=== PATIENT | male | born 1970 | race Caucasian/White ===

== ENCOUNTER 2016-12-16 16:59 | Emergency (ER) | payer BC ==
[2016-12-16] MEDS ORDERED: Famotidine/PF 20 mg/2ml Vial ONE (17:31)
[2016-12-16] MEDS ORDERED: Mag-Al Plus 1200 MG/1200 MG/120 MG/30 ML UDCUP ONE (17:31)
[2016-12-16 17:32] LABS: #Basophils 0.1 thou/uL (0.0-0.2); #Eosinphils 0.1 thou/uL (0.0-0.7); #Lymphocytes 1.5 thou/uL (1.20-3.40); #Monocytes 0.7 thou/uL (0.11-0.59); #Neutrophils 9.8 thou/uL (1.40-6.50); %Basophils 0.7 % (0.0-1.0); %Eosinophils 0.7 % (0.0-10.0); %Lymphocytes 12.6 % (21.0-51.0); %Monocytes 5.5 % (0.0-10.0); Hematocrit 50.1 % (42.0-52.0); Mean Platelet Volume 9.2 fL (7.4-10.4); Red Blood Cell (RBC) Count 5.59 mill/uL (4.70-6.10); White Blood Cell (WBC) Count 12.1 thou/uL (4.8-10.8)
[2016-12-16 17:50] LABS: ALT (SGPT) 13 U/L (8-55); AST (SGOT) 14 U/L (5-34); Alkaline Phosphatase 93 U/L (40-150); Anion Gap 15 mmol/L (10-20); BUN (Urea Nitrogen) 15 mg/dL (8.9-20.6); Calc. Creatinine Clearance 0 mL/min (70-130); Calcium 9.7 mg/dL (7.8-10.44); Carbon Dioxide 25 mmol/L (22-29); Chloride 105 mmol/L (98-107); Estimated GFR-MDRD 86; Globulin 3.4 g/dL (2.4-3.5); Lipase 38 U/L (8-78); Protein, Total 8.1 g/dL (6.0-8.3)
[2016-12-16] MEDS ORDERED: Ondansetron HCl/PF 4 MG/2 ML Vial ONE (17:58)
[2016-12-16 18:01] LABS: Bilirubin, Total 1.1 mg/dL (0.2-1.2)
--- NOTE | 2016-12-16 22:34 | ULT ---
RIGHT UPPER QUADRANT ULTRASOUND: 12/16/16 HISTORY: Epigastric and right upper quadrant abdominal pain. History of prior gastric sleeve procedure. FINDINGS: There is increased echogenic material seen in the gallbladder lumen consistent with sludge. There is also multiple small echogenic foci in the gallbladder lumen layering dependently demonstrating post erior shadowing consistent with multiple gallbladder calculi. The gallbladder is mildly distended. T he common duct is normal in caliber and measures 0.5 cm in diameter. The liver, visualized portions of the IVC, and right kidney demonstrate a normal sonographic appeara nce. The right kidney measures 11.8 cm in length. The pancreas is mostly obscured by bowel gas. IMPRESSION: Cholelithiasis with sludge in the gallbladder lumen. Common duct is normal in caliber. POS: WERO
== END 2016-12-16 20:05 | disposition home or self-care (01) ==
LOC: SCSER 16:59
DX: K80.20 Calculus of gallbladder without cholecystitis without obstruction (principal); F41.9 Anxiety disorder, unspecified; Z79.899 Other long term (current) drug therapy
CPT/HCPCS: 76705; 80053; 83690; 85025; 96361; 96374; 96375; J1170; J2405; S0028

== ENCOUNTER 2016-12-21 13:30 | Day surgery (SDC) | payer BC ==
[2016-12-18 11:03] VITALS: BMI 34.5
[2016-12-21] MEDS ORDERED: Midazolam HCl 2 mg/2 ml Vial ONE ×2 (15:18→15:37)
[2016-12-21] MEDS ORDERED: Bupivacaine/Epinephrine 0.5% 10 ML VIAL ONE (15:27)
[2016-12-21] MEDS ORDERED: Fentanyl 100 MCG/2 ML VIAL ONE (15:37)
[2016-12-21] MEDS ORDERED: Promethazine HCl 25 MG/ML VIAL ONE (15:37)
[2016-12-21] MEDS ORDERED: PHENYLEPHRINE-NS 100 MCG/ML 10 ML SYRINGE ONE (15:46)
[2016-12-21] MEDS ORDERED: Glycopyrrolate 0.2 MG/ML 5 ML SYRINGE ONE (15:46)
[2016-12-21] MEDS ORDERED: Propofol 200 MG/20 ML VIAL ONE (15:46)
[2016-12-21] MEDS ORDERED: Lidocaine 1% PF 5 ML VIAL ONE (15:46)
[2016-12-21] MEDS ORDERED: Ondansetron HCl/PF 4 MG/2 ML Vial ONE (15:46)
[2016-12-21] MEDS ORDERED: SUGAMMADEX SODIUM 200 MG/2 ML VIAL ONE (16:23)
[2016-12-21] MEDS ORDERED: Morphine Sulfate 2 MG/ML SYRINGE ONE (17:38)
--- NOTE | 2016-12-22 09:00 | OP ---
DATE OF SERVICE: 12/21/2016 PREOPERATIVE DIAGNOSIS: Symptomatic gallstones. POSTOPERATIVE DIAGNOSIS: Gangrenous cholecystitis. PROCEDURE: Laparoscopic cholecystectomy with placement of temporary abdominal drain. SURGEON: Junior Garcia M.D. ANESTHESIA: General. ESTIMATED BLOOD LOSS: Minimal. COMPLICATIONS: None. SPECIMEN: Gallbladder. FINDINGS: Gangrenous cholecystitis. TECHNIQUE: The patient was taken to the operating room and laid supine on the operating room table. After general anesthetic was obtained, the abdomen was shaved, prepped and draped in a sterile fas hion. An incision was made below the umbilicus. Cautery was used to dissect down to and score the fascia. Abdominal cavity was entered using a Shilpa clamp. Holding stitch of PDS was placed on each side of the fascia. Jennifer trocar was placed. High-flow pneumoperitoneum was obtained. An upper midline 5-mm port and 2 right upper quadrant 5-mm ports were placed under direct visualization. The gallbladder was retracted from the gallbladder fossa. It was difficult to grasp and so it was deco mpressed using a needle and 60 mL syringe. The gallbladder had portions that were gangrenous. The omentum had to be dissected off of it bluntly. The peritoneum was opened over the bottom of the gal lbladder and the critical view triangle was seen and dissected out. Two clips were placed proximall y on the cystic duct and one distally. It was cut using laparoscopic scissors. Cystic artery was t aken in the same way. Cautery was used to dissect the gallbladder out of the gallbladder fossa. Th e gallbladder was placed in an Endo Catch bag and brought out through the Jennifer. All port sites we re infiltrated using local anesthetic. The right upper quadrant was irrigated. A 19 round drain br ought out through the right upper quadrant port site and left in the gallbladder fossa, sewn in plac e using 2-0 silk, and connected to a bulb on the outside. All ports were removed under camera visua lization. Pneumoperitoneum was let down. PDS was used to close the fascial defect below the umbili cus. All incisions were irrigated and closed using 4-0 Monocryl and Dermabond. The patient was en route to recovery in stable condition. All instrument counts, needle counts, and lap counts were co rrect.
== END 2016-12-21 19:30 | disposition home or self-care (01) ==
LOC: SDC 13:30
PROVIDERS: ATTEND Surgery
PROC: 0FT44ZZ Resection of Gallbladder, Percutaneous Endoscopic Approach (ICD-10-PCS; principal; 2016-12-21)
DX: K80.00 Calculus of gallbladder with acute cholecystitis without obstruction (principal); K21.9 Gastro-esophageal reflux disease without esophagitis; G47.30 Sleep apnea, unspecified; Z98.84 Bariatric surgery status; Z79.51 Long term (current) use of inhaled steroids; Z79.899 Other long term (current) drug therapy
CPT/HCPCS: 88304; 96374; J2001; J2250; J2270; J2405; J2550; J2704; J3010; J3490

== ENCOUNTER 2024-01-03 15:29 | Outpatient (CLI) | payer BC | END 2024-01-03 15:30 | disposition home or self-care (01) | LOC: SCSRAD 15:29 | PROVIDERS: ATTEND Nurse Practitioner Family | DX: R07.81 Pleurodynia (principal) ==